=== PATIENT | female | born 2000 | race Caucasian/White ===

== ENCOUNTER 2024-04-10 14:44 | Outpatient (CLI) | payer OTHER ==
--- NOTE | 2024-04-12 00:11 | Ultrasound Report ---
PROCEDURE: Pelvic w/Transvaginal INDICATIONS: IRREGULAR MENSTRATION TECHNIQUE: Transabdominal/transvaginal ultrasound of the pelvis was obtained. Endovaginal scanning wa s necessary due to incomplete visualization of the adnexal and endometrial structures by transabdomin al scanning. COMPARISON: None. FINDINGS: Uterine size: Uterus measures 7.1 x 2.6 x 4.3 cm, and is anteverted. Myometrium: The myometrium is homogeneous. Endometrium: The endometrium measures 2.1 mm in combined thickness. Intrauterine device in place Both ovaries appropriate in size, echotexture and vascularity. Incidental 2 cm right ovarian cyst, si mple cyst. Other: No pathologic free abdominal or pelvic fluid. IMPRESSION: Unremarkable ultrasound of the pelvis Intrauterine device in place Reviewed by: Memo Carranza MD on 04/11/2024 11:09 PM [facility] Approved by: Memo Carranza MD on 04/11/2024 11:09 PM [facility] Station ID: [id number]
== END 2024-04-10 14:45 | disposition home or self-care (01) ==
LOC: DI 14:44
PROVIDERS: ATTEND Nurse Practitioner Family
DX: N92.6 Irregular menstruation, unspecified (principal); Z97.5 Presence of (intrauterine) contraceptive device